=== PATIENT | male | born 1960 | race Caucasian/White ===

== ENCOUNTER → 2019-05-09 16:26 | Outpatient (CLI) | payer OTHER, SELFPAY ==
--- NOTE | 2019-05-09 16:43 | EKG12_ITS ---
Test Reason : PREOP Blood Pressure : / mmHG Vent. Rate : 072 BPM Atrial Rate : 072 BPM P-R Int : 124 ms QRS Dur : 086 ms QT Int : 402 ms P-R-T Axes : 013 064 058 degrees QTc Int : 440 ms Normal sinus rhythm with sinus arrhythmia Normal ECG Confirmed by ANSON JEFFERS ([id number]), telegraph editor SYLVESTER GUPTA ([id number]) on 05/13/2019 2:01:31 PM Referred By: Ameya Delgado Confirmed By:ANSON JEFFERS
[2019-05-09 17:16] LABS: Absolute Lymphocyte Count 0.58 X10^3/uL (0.83-4.51); Absolute Neutrophil Count 5.8 X10^3/uL (2.0-7.7); Basophil# 0.03 X10^3/uL; Basophil% 0.4 % (0-1); Eosinophil# 0.27 X10^3/uL; Eosinophils% 3.5 % (0-5); Hematocrit 46.2 % (40-54); Hemoglobin 15.2 g/dL (13.0-16.5); Lymphocyte # 0.58 X10^3/ul (4.0); Lymphocyte % 7.6 % (19-41); Mean Corp Hgb Conc 32.9 g/dL (32-36); Mean Corpuscular Volume 91.1 fL (80-94); Mean Platelet Vol. 10.7 fl (6.2-12.0); Monocyte# 0.89 X10^3/uL; Monocyte% 11.7 % (0-10); NRBC Flagged by Analyzer 0 % (0-5); Neutrophil # 5.83 X10^3/uL (2.7-7.7); Neutrophil % 76.4 % (47-70); POSITIVE DIFFERENTIAL YES; Platelet Count 180 K/mm3 (150-450); RBC Distribution Width SD 43.2 fl (35.1-43.9); Red Blood Count 5.07 M/mm3 (4.6-6.2); White Blood Count 7.6 K/mm3 (4.4-11.0)
[2019-05-09 17:19] LABS: Differential Indicated SCAN CRITERIA MET
[2019-05-09 17:39] LABS: Differential Comment SCANNED
[2019-05-09 17:54] LABS: Anion Gap 8 (5-15); BUN 17 mg/dL (7-18); BUN/Creat Ratio 17.6 RATIO (10-20); Calcium,Total 8.6 mg/dL (8.5-10.1); Chloride 109 mmol/L (98-107); Creatinine, Serum 0.97 mg/dL (0.70-1.30); EST Glomerular Filtration Rate 84 mL/min (>60); Est Glom Filt Rate - Afr Amer 102 mL/min (>60); Glucose 87 mg/dL (74-106); Potassium 3.7 mmol/L (3.5-5.1); Sodium Level 143 mmol/L (136-145)
== END ==
PROVIDERS: Referring Provider Physician Assistant; Visit Provider Physician Assistant
DX: Z01.818 Encounter for other preprocedural examination (principal); Z79.899 Other long term (current) drug therapy
CPT/HCPCS: 36415; 80048; 85025; 93005

== ENCOUNTER 2019-05-22 05:25 | Day surgery (SDC) | payer OTHER, SELFPAY ==
[2019-05-22] VITALS (7 sets, daily range): BP systolic 104–124; BP diastolic 56–81; PULSE 68–80; RESP 16–18; TEMP 36.1–36.8; O2SAT 93–99; BMI 38.5
[2019-05-22 06:11] LABS: Bedside Glucose 107 mg/dL (70-110)
[2019-05-22] MEDS: Lactated Ringers 1,000 ML 100 ML IV ×2 (06:39→09:30)
[2019-05-22] MEDS: Gabapentin 600 MG Tablet PO (06:40)
[2019-05-22] MEDS: Acetaminophen 500 MG Tablet 1000 MG PO ×2 (06:40→13:08)
[2019-05-22] MEDS: Magnesium Sulfate 4gm/100mL 4 GM/100 ML IV.SOLN. IV (06:40)
--- NOTE | 2019-05-22 07:30 | KNEE_PTH ---
PATIENT: ISAIAH GOODSON [place] [facility] [place][id number] AGE/SX: 58/M ROOM: RE05/22/[address]: Dr. Tye Martinez DO : 1960 BED: DIS: 05/22/2019 SPEC #: [id number] RECD: 05/22/19 14:09 STATUS: LAWRENCE GERONIMO #: [id number] TONEY: 05/22/19 07:[address]: Tye Martinez DEPT: SURGICAL PATHOLOGY RECD BY: Quita De León ENTERED: 05/22/19 14:30 SP TYPE: TOTAL KNEE OTHR DR: Dr. Anthony Pang MD Tissues: Knee, NOS Procedures: Decalcification bone/plaque Surgery Specimen Level IV HEADER OPERATION: ERAS, total knee replacement PRE-OP DIAGNOSIS: Unilateral primary osteoarthritis, left knee TISSUE SUBMITTED: Left knee bone MICROSCOPIC DIAGNOSIS Left knee, total knee replacement/resection: Pieces of bone with degenerative osteoarthritic changes. Fibroadipose tissue, fibroconnective tissue and reactive synovial tissue. NIHARIKA:sunny 05/27/19 MICROSCOPIC DESCRIPTION Slides are reviewed. GROSS DESCRIPTION Received is one container designated left knee bone. The specimen consists of multiple fragments of calderon-yellow bone measuring in aggregate 11 x 10 x 4 cm. Also in the specimen container are multiple fragments of yellow-white soft tissue measuring in aggregate 9 x 8 x 3 cm. A number of bony fragments contain articular surfaces consistent with tibial plateau and femoral condyle and displaying prominent osteophyte formation, eburnation, and bone erosion. Vegetable Harvest Worker sections are submitted in two cassettes as follows: 1 - soft tissue, 2 - bone after decalcification. / NIHARIKA:sunny 05/22/19 TC:5 [facility]: [id number], [id number]
[2019-05-22] MEDS: Cefazolin 2 GM in 0.9% Normal Saline 100 ML IV (07:35)
[2019-05-22 07:53] LABS: M R Staph aureus DNA By PCR Negative (Negative); Probe Check PASS; Specimen Processing Control PASS
--- NOTE | 2019-05-22 08:59 | PCM.OPRPT ---
Report of Operation Date of Procedure: 05/22/19 Pre-Operative Diagnosis: OA left knee Post-Operative Diagnosis: same Surgery/Procedure Performed:: Left TKR Description of Surgical Findings:: Primary Surgeon/Physician: Tye Martinez studio operator: Ameya Delgado PA-C studio operator: Pre-Operative Diagnosis: OA left knee Post-Operative Diagnosis: same Surgery/Procedure Performed: Left TKR Estimated Blood Loss: 50 cc Specimen's Removed: bone Type of Anesthesia: spinal ASA Class: 3 Implants: [Fabrice Triathlon size 7 press fit CR femur, size 7 press fit tibia, 9 mm CS polyethylene spacer, 40 mm press fit patella ] Indications: Patient has severe end-stage osteoarthritis diagnosed via x-rays in the knee. They have failed all forms of conservative measures including activity modification, injections, anti-inflammatories, use of assistive device. The patient has pain that affects on a daily basis and prevents him from doing things that they enjoyed. They have elected to undergo the above procedure. The risks of the procedure were discussed at length and their questions were answered. Procedure Description: The patient was greeted in the preoperative area. The [left ] knee was then marked with a surgical marker. Patient was then taken to or [address]. They were administered a dose of antibiotics as well as tranexamic acid. Once adequate anesthesia was obtained and airway was secured to placed in supine position on the operating room table. A well-padded tourniquet was placed on the affected extremity. Leg was then prepped and draped in the usual sterile fashion from the knee down. Ioban was used on the skin. Surgical timeout was then performed and confirmed with all present. Six-inch Esmarch was used to examine the limb and tourniquet was then inflated to 250 mmHg. A longitudinal incision was then planned and carried out in the anterior aspect of the knee. The dissection was then carried the length of the incision the extensor mechanism was identified. Standard medial parapatellar arthrotomy was then performed revealing severe eburnation of bone and periarticular osteophytes. There is complete loss of cartilage especially in the medial compartment with varus alignment. Anterior fat pad was removed for visualization purposes and the anterior medial aspect of the tibia was skeletonized for exposure to the knee. The knee was then flexed the patella was inverted. Opening reamer was then used in the femur approximately 1 cm anterior to the attachment of the PCL. The intramedullary valgus wand was then placed in the femur set at 5? of valgus. The distal femoral cutting jig was then applied to the femur with anticipated resection of approximately 8 mm. This was then made with a oscillating saw. The sizing guide was then placed referencing off the posterior condyles and also reference off the epicondylar axis. This was measured and the appropriate size 4-in-1 cutting jig was then applied to the distal femur. Anterior posterior cuts were made followed by the anterior and posterior chamfer cuts. These bony pieces and fragments were removed and placed on the back table. Posterior retractor was then utilized and the tibia was subluxed anteriorly. Intramedullary tibial alignment jig was then applied to the tibia referencing off the medial one third of the tibial tubercle the anterior tibial spine the middle aspect of the tibiotalar joint. Also reference off patient's [place]. The tibial cutting jig was then pinned with anticipated resection of 2 mm off of the deficient medial tibial condyle. This cut was made with the oscillating saw. Once this was complete a laminar special agent fbi was utilized in both medial lateral meniscus were removed and a posterior capsular osteophytes were also removed. Posterior capsule release was performed in the posterior capsule as well as the geniculate arteries are treated with the aqua Sonia. The tibia was incised and the appropriate sized tibial tray was then pinned. The femoral trial was then placed and the knee was trialed. Full flexion-extension were easily achieved. The knee seemed to balance quite nicely. Any remaining osteophytes were removed at this time. Once this was complete the patella was everted and the patella reaming device was then utilized the patella was then placed in the appropriate jig and reamer was then used to remove approximately 9 mm of the undersurface of the patella. A soft tissue remaining was in the way was removed and patella trial was then placed listed maintain excellent tracking using the no thumbs technique. The tibial tray at this point was punched to accommodate the fins of the final implant. The permanent implants were then impacted into place. The knee is once again trialed with different size polyethylenes to ensure the full range of motion was achieved as well as excellent balancing ligamentously was achieved. At this point the knee was copiously irrigated. Final implant was then inserted locking mechanism was engaged and confirmed to be locked. The arthrotomy was then closed with #1 Vicryl aggravate type fashion interrupted. Subcutaneous tissue was closed with 0 Vicryl and surgical andrade were placed in the skin. A occlusive silver impregnated dressing was then applied followed by well-padded sterile dressing secured with an Arthur wrap. The patient was taken to the PACU in stable condition. No complications known at this time. Postoperatively we will maintain standard total knee postoperative protocol. The use of the physician diploma medical assistant was integral during this procedure. They assisted with positioning placement of the tourniquet retracting closure and placement of the dressing. The procedure would have been much more difficult without their expertise and assistance studio operator: Ameya Delgado Type of Anesthesia:: Spinal Anesthesiologist: Chad Santoyo Specimen's removed: bone Estimated Blood Loss (mL): 50 cc
--- NOTE | 2019-05-22 11:35 | SUR.PHASEII ---
Addendum entered by Guerda Velázquez 05/22/19 12:16: KITA PT, AND DONG OT, HAVE ARRIVED TO EVALUATE PATIENT. Original Note: ABLE TO BEAR WEIGHT USING WALKER, MARCHED IN PLACED AT BEDSIDE. WILL CALL P.T. FOR EVALUATION.
[2019-05-22] MEDS: oxyCODONE 5 MG Tablet PO (12:15)
== END 2019-05-22 13:27 | disposition home or self-care (01) ==
LOC: SDC 05:27 → AC 05:27
PROVIDERS: Referring Provider Orthopaedic Surgery; Visit Provider Orthopaedic Surgery
PROC: (CPT 27447; principal; 2019-05-22 07:05)
DX: M17.12 Unilateral primary osteoarthritis, left knee (principal)
CPT/HCPCS: 01400; 27447; 82962; 87641; 88305; 88311; 97162; 97166; C1776; J7120

== ENCOUNTER 2020-03-30 14:28 | Observation (INO) | payer OTHER, SELFPAY ==
[2020-02-25 08:27] VITALS: BMI 38.5
[2020-03-24 19:52] LABS: Probe Check PASS; Specimen Processing Control PASS
[2020-03-30] VITALS (14 sets, daily range): BP systolic 114–143; BP diastolic 67–87; PULSE 66–87; RESP 16–18; TEMP 36.1–37; O2SAT 90–96; BMI 40.4
--- NOTE | 2020-03-30 | HERN_PTH ---
PATIENT: ISAIAH GOODSON LOC: [facility] U#:[id number] AGE/SX: 59/M ROOM: WI318 RE03/30/[address]: Dr. Ricky Bonner MD : 1960 BED: 1 DIS: 03/31/2020 SPEC #: [id number] RECD: 03/30/20 13:49 STATUS: LAWRENCE REManish #: [id number] TONEY: 03/30/20 00:[address]: Ricky Bonner DEPT: SURGICAL PATHOLOGY RECD BY: Abimael Leiva ENTERED: 03/31/20 08:02 SP TYPE: Hernia OTHR DR: Dr. Anthony Pang MD Tissues: HERNIA Procedures: Surgery Specimen Level II HEADER OPERATION: Laparoscopic ventral hernia repair mesh PRE-OP DIAGNOSIS: Ventral incisional hernia TISSUE SUBMITTED: Hernia sac MICROSCOPIC DIAGNOSIS Hernia sac, herniorrhaphy: Fibrofatty tissue consistent with hernia sac. AM:sunny 04/01/20 MICROSCOPIC DESCRIPTION Slides are reviewed. GROSS DESCRIPTION Received in fixative is one container labeled with the patient's name and designated hernia sac. The specimen consists of two pieces of yellow adipose tissue measuring 4.5 x 4 x 0.5 cm. No mass lesion is identified. Photographer Finish sections are submitted in one cassette. / SJ:rg 03/31/20 TC:5 CPT: 60281
[2020-03-30] MEDS: Lactated Ringers 1,000 ML 100 ML IV ×2 (10:14→12:15)
--- NOTE | 2020-03-30 10:55 | HP.PCM_ITS ---
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 The patient presents with abdominal wall hernia at the site of incision. The patient reports that it is large and becoming larger. It is painful as well. Past Medical History Medical History: Medical History (Last Updated 02/25/20 @ 08:26 by Sindhu Olivera) hursbrungh disease Allergies No Known Allergies Allergy (Verified 03/30/20 09:58) Home Medications: Ambulatory Orders Medication Instructions Recorded Naproxen Sodium [Aleve] 220 mg PO PRN PRN 05/20/19 Surgical History: Surgical History (Last Reviewed 02/25/20 @ 08:24 by Sindhu Olivera) S/P hernia repair Z98.890, Z87.19 bilateral inguinal S/P right knee surgery Z98.890 Status post left knee replacement Z96.652 Smoking Status: Never smoker Tobacco Use: Non-smoker Review of Systems Constitutional: Denies: Anorexia, Fever HEENT: Denies: Difficulty Swallowing Cardiovascular: Denies: Chest Pain Respiratory: Denies: Cough, Shortness of Breath Gastrointestinal: Reports: Abdominal Pain, - - Ventral hernia. Denies: Nausea, Vomiting Neurological: Denies: Balance problems Psychiatric: Denies: Anxiety, Depression VTE Information - Inpt Only VTE Present on Admission: No VTE Mechan Device Prophylaxis: SCD's Patient Problems: Active and Suspected Problems (Last Updated 02/25/20 @ 08:26 by Sindhu Olivera) Ventral incisional hernia (Acute) - Physical Exam Vitals/I&O's: Vital Signs Temp Pulse Resp BP Pulse Ox 97.4 F L 73 16 136/82 H 96 03/30/20 10:02 03/30/20 10:02 03/30/20 10:02 03/30/20 10:02 03/30/20 10:02 Oxygen Delivery Method Room Air Weight: 298 lb 1.039 oz Body Mass Index (BMI) 40.4 General: Alert, Oriented x3 Neck: No JVD Lungs: Clear to auscultation, Normal air movement Cardiovascular: Regular rate, Regular Rhythm Abdomen: Soft, Non Tender, Non-Distended, - - Reducible ventral hernia Musculoskeletal: No Muscle Wasting Neurological: Cranial nerves II-XII grossly intact Psych/Mental Status: Normal Affect Current Medications Cefazolin Sodium 2 gm/ Sodium (Chloride) 110 mls @ 150 mls/hr IV PREOP ONE Stop: 03/30/20 11:43 Lactated Ringer's () 1,000 mls @ 100 mls/hr IV .Q10H JARVIS Last Admin: 03/30/20 10:14 Dose: 100 mls/hr Documented by: Assessment/Plan All Active Problems (Last Updated 02/25/20 @ 08:26 by Sindhu Olivera) Ventral incisional hernia (Acute) 59-year-old male with incisional ventral hernia 1. The patient has a ventral hernia at the site of his prior incision. The patient had a CT scan done at an outside hospital and I did review the CT scan. The hernia appears to be amenable to laparoscopic repair if the patient does not have too many adhesions. I explained a hybrid laparoscopic and open approach to the patient. I will start laparoscopically and clear any adhesions and then opened the hernia sac and place a port through the hernia to introduce the mesh into the abdomen and close the fascia directly. I will then laparoscopically place mesh in the anterior abdominal wall. I explained the procedure in detail and that the backup plan would be an open hernia repair with mesh. I explained the risks of the procedure including but not limited to bleeding, infection, injury to underlying bowel, recurrence of hernia, hematoma, seroma. The patient understands the risks and is willing to proceed with surgery. We discussed the current risks associated with COVID-19. While it is understood that there is a community spread of COVID-19, the risk of eliseo COVID-19 while at [facility] ([facility]) is very low; however, the risk cannot be completely mitigated because of the community spread of the disease. We discussed in detail the risk of exposure to and/or potential harm posed by the COVID-19 virus with having a surgery/procedure at this time versus the risk of delaying the surgery/procedure. It is not possible to know either the risk of delaying the surgery or procedure or chance of getting an infection with perfect accuracy, but a joint decision was made to proceed at this time with the scheduled surgery/procedure as indicated on the consent form. Patient was notified that we will need to comply with any screening or testing [facility] wishes to perform or that surgery may be delayed for any positive results. Ricky Bonner MD Pager: [facility] [address] [place] [address] [address] [place] [address] Office:
[2020-03-30] MEDS: Cefazolin 2 GM in 0.9% Normal Saline 100 ML IV (11:02)
[2020-03-30] MEDS: Bupiv/Epi 0.25% 30 ML Vial (12:30)
[2020-03-30] MEDS: 0.9% Normal Saline 1,000 ML 60 ML IV (14:47)
[2020-03-30] MEDS: Ketorolac 15 MG/ML Vial IV (15:33)
--- NOTE | 2020-03-30 15:40 | PCM.OPRPT ---
Problem List (1) Ventral incisional hernia Status: Acute Report of Operation Date of Procedure: 03/30/20 Pre-Operative Diagnosis: Incisional ventral hernia Post-Operative Diagnosis: Same Surgery/Procedure Performed:: Laparoscopic incisional ventral hernia repair with mesh Specimen's removed: Hernia sac Description of Procedure: The patient was brought back the operating room and general anesthesia was induced. The abdomen was prepped and draped in usual sterile fashion. An incision was made in the left upper quadrant and a 5 mm port was placed into the abdomen using Visiport technique. The abdomen is insufflated to 15 mmHg. The patient had dense adhesions throughout the abdomen to the anterior abdominal wall. Under direct visualization an epigastric 5 mm port was placed as well as a left lower quadrant 5 mm port. The adhesions were dense to the abdominal wall and they were taken down sharply using scissors. The hernia was reduced and there was also a smaller hernia superior to this. The adhesions were all taken down and the bowel was inspected and there is no sign of bowel injury. Next an incision was made over the hernia and the hernia sac was excised. 0 Prolene sutures in a [id number] fashion were placed in the anterior fascia and the middle suture was left open. A 10 mm port was placed into this opening and the abdomen was reinsufflated. 15 cm round ventral light ST mesh with echo positioning system was placed through the 10 mm port into the abdomen under direct visualization. The port was removed and the remaining suture was tied tight. The abdomen was reinsufflated and under direct visualization the balloon was insufflated and it was tightened to the abdominal wall. The pressure in the abdomen was dropped 8 mmHg. Using secure strap tacker the mesh was tacked to the abdominal wall in 4 quadrants and then the balloon was removed from the mesh and removed through a 5 mm port and it was inspected and it was intact. Next the bowel was inspected once more and there did not appear to be any injury to the bowel. There was no leakage or injury or bleeding on the bowel. Next the mesh was tacked to the anterior abdominal wall circumferentially and a few tacks were placed into the middle. The bowel was reinspected and still appeared intact with no sign of bowel injury. Next the air was allowed to desufflate from the abdomen as the mesh was inspected and appeared to lie flat. The incisions were each injected with local anesthetic. The skin incisions were closed with interrupted 4-0 Monocryl sutures as well as Steri-Strips and bandages. Patient was taken to PACU in stable condition. Patient will be admitted for observation due to the numerous adhesions. Grafts/Implants Used: [address] mesh - Admit VTE Documentation VTE Mechan Device Prophylaxis: SCD's
[2020-03-30] MEDS: Acetaminophen 325 MG Tablet 650 MG PO (18:48)
[2020-03-30] MEDS: Ondansetron 4 MG/2 ML Vial IV (19:24)
[2020-03-30] MEDS: Pantoprazole Sodium 20 MG Tablet PO (22:06)
[2020-03-30] MEDS: Docusate Sodium 100 MG Capsule PO (22:06)
[2020-03-31 02:36] VITALS: BP 127/80; PULSE 85; RESP 18; TEMP 36.6; O2SAT 92
[2020-03-31] MEDS: Ondansetron 4 MG/2 ML Vial IV (04:52)
[2020-03-31 05:44] LABS: Absolute Lymphocyte Count 0.71 X10^3/uL (0.83-4.51); Absolute Neutrophil Count 14.3 X10^3/uL (2.0-7.7); Basophil# 0.02 X10^3/uL; Basophil% 0.1 % (0-1); Eosinophil# 0.03 X10^3/uL; Eosinophils% 0.2 % (0-5); Hematocrit 43.9 % (40-54); Hemoglobin 14.8 g/dL (13.0-16.5); Lymphocyte # 0.71 X10^3/ul (4.0); Lymphocyte % 4.3 % (19-41); Mean Corp Hgb Conc 33.7 g/dL (32-36); Mean Corpuscular Hgb 30.3 pg (27.0-32.0); Mean Platelet Vol. 10.5 fl (6.2-12.0); Monocyte# 1.29 X10^3/uL; Monocyte% 7.8 % (0-10); NRBC Flagged by Analyzer 0 % (0-5); Neutrophil # 14.31 X10^3/uL (2.7-7.7); Neutrophil % 87.1 % (47-70); Platelet Count 219 K/mm3 (150-450); RBC Distribution Width CV 13.2 % (11.6-14.6); RBC Distribution Width SD 43.2 fl (35.1-43.9); Red Blood Count 4.88 M/mm3 (4.6-6.2); White Blood Count 16.4 K/mm3 (4.4-11.0)
[2020-03-31 06:00] LABS: Anion Gap 6 (5-15); BUN 16 mg/dL (7-18); BUN/Creat Ratio 15.4 RATIO (10-20); Calcium,Total 8.5 mg/dL (8.5-10.1); Chloride 109 mmol/L (98-107); Creatinine, Serum 1.04 mg/dL (0.70-1.30); EST Glomerular Filtration Rate 77 mL/min (>60); Est Glom Filt Rate - Afr Amer 94 mL/min (>60); Estimated Creatinine Clearance 82.91 ml/min; Glucose 144 mg/dL (74-106); Potassium 3.9 mmol/L (3.5-5.1); Sodium Level 139 mmol/L (136-145)
[2020-03-31] MEDS: 0.9% Normal Saline 1,000 ML 60 ML IV (06:31)
--- NOTE | 2020-03-31 07:43 | PN.SURG_ITS ---
Patient Problems: Active and Suspected Problems (Last Updated 02/25/20 @ 08:26 by Sindhu Olivera) Ventral incisional hernia (Acute) Subjective: Patient reports that he is doing well this morning. He is passing a small amount of gas but he did have a small amount of vomiting this morning as well. His abdomen is improved since yesterday. - Physical Exam Vitals/I&O's: Vital Signs Temp Pulse Resp BP Pulse Ox 97.8 F 85 18 127/80 H 92 03/31/20 02:36 03/31/20 02:36 03/31/20 02:36 03/31/20 02:36 03/31/20 02:36 Oxygen Flow Rate (L/min) 3 Oxygen Delivery Method Room Air Weight: 298 lb 1.039 oz Body Mass Index (BMI) 40.4 Intake and Output for Last 24 Hours 03/29/20 03/30/20 03/31/20 23:59 23:59 23:59 Intake Total 2510 / 2510 1644 / 1644 Output Total 1350 / 1350 Balance 2510 / 2510 294 / 294 General: Alert, Oriented x3 Lungs: Normal air movement Cardiovascular: Regular rate, Regular Rhythm Abdomen: Soft, Non-Distended, Tender - Mild tenderness Laboratory Results 03/31/20 05:28: WBC 16.4 H, RBC 4.88, Hgb 14.8, Hct 43.9, MCV 90.0, MCH 30.3, MCHC 33.7, RDW Std Deviation 43.2, RDW Coeff of Bina 13.2, Plt Count 219, MPV 10.5, Immature Gran % (Auto) 0.500, Neut % (Auto) 87.1 H, Lymph % (Auto) 4.3 L, Randolph % (Auto) 7.8, Eos % (Auto) 0.2, Baso % (Auto) 0.1, Absolute Neuts (auto) 14.3 H, Absolute Lymphs (auto) 0.71 L, Nucleated RBC % 0 03/31/20 05:28: Sodium 139, Potassium 3.9, Chloride 109 H, Carbon Dioxide 24.0, Anion Gap 6, BUN 16, Creatinine 1.04, Estim Creat Clear Calc 82.91, Est GFR (MDRD) Af Amer 94, Est GFR (MDRD) Non-Af 77, BUN/Creatinine Ratio 15.4, Glucose 144 H, Calcium 8.5 Current Medications Acetaminophen (Tylenol) 650 mg PO Q4H PRN PRN PRN Reason: Pain or Fever Last Admin: 03/30/20 18:48 Dose: 650 mg Documented by: Docusate Sodium (Colace) 100 mg PO BID [facility] Last Admin: 03/30/20 22:06 Dose: 100 mg Documented by: Enoxaparin Sodium (Lovenox) 40 mg SC DAILY [facility] Sodium Chloride () 1,000 mls @ 60 mls/hr IV .[id number] [facility] Last Admin: 03/31/20 06:31 Dose: 60 mls/hr Documented by: Sodium Chloride () 250 mls @ 15 mls/hr IV .[id number] PRN PRN Reason: Saline Flush Sodium Chloride () 250 mls @ 15 mls/hr IV .[id number] PRN PRN Reason: Additional IVPB Infusion Ketorolac Tromethamine (Toradol (Bkc)) 15 mg IV Q8H PRN PRN PRN Reason: Pain Score 4-10/10 Stop: 04/01/20 14:29 Last Admin: 03/30/20 15:33 Dose: 15 mg Documented by: Morphine Sulfate () 2 - 4 mg IV Q2H PRN PRN PRN Reason: Pain Score 4-10/10 Morphine Sulfate () 2 - 4 mg IV Q2H PRN PRN PRN Reason: Pain Score 4-10/10 Ondansetron HCl (Zofran) 4 mg IV Q6H PRN PRN PRN Reason: NAUSEA Last Admin: 03/31/20 04:52 Dose: 4 mg Documented by: Oxycodone HCl (Oxyir) 5 - 10 mg PO Q4H PRN PRN PRN Reason: Pain Score 4-10/10 Pantoprazole Sodium (Protonix) 20 mg PO BID [facility] Last Admin: 03/30/20 22:06 Dose: 20 mg Documented by: Sodium Chloride () 10 - 40 ml IV UD PRN PRN Reason: SALINE FLUSH Medical Necessity - Tobacco Use Smoking Status: Never smoker Tobacco Use: Non-smoker Assessment/Plan All Active Problems (Last Updated 02/25/20 @ 08:26 by Sindhu Olivera) Ventral incisional hernia (Acute) 59-year-old male status post ventral hernia repair with extensive takedown of adhesions 1. Patient reports he did well overnight and had a small amount of vomiting this morning. He denies any nausea currently. I will try clear liquids for breakfast and make sure he tolerates that before regular diet at lunch. If he tolerates regular diet for lunch he may be discharged home. Ricky Bonner MD Pager: [facility] [address] [place] [address], [address] [place] [address] Office:
--- NOTE | 2020-03-31 07:51 | PCM.DC.HER ---
Discharge Diet: Light diet - advance as tolerated Discharge Activity: Return to Normal Activity, May Not Drive - for 2-3 days or while taking narcotic pain meds., May Shower - with the bandage in place 1-2 days after surgery. Lifting Restrictions: 20 pounds for 6 weeks. Additional Activity Instructions:: Climbing stairs is fine, walking is encouraged. Sitting in bed may be uncomfortable. Sitting up using your lateral muscles (sitting up sideways) is usually more comfortable. Do not drive, work heavy equipment of sign legal documents for 24 hours. Pain medications may cause nausea, you should typically eat light foods as you take your pain medications. Pain medications may also cause constipation. If you have difficulty with this, discuss with your doctor. Call your doctor if your incision/area has: Continuous Slow Oozing, Sudden Increased Bleeding, Increased Pain/ Swelling, Increased Redness, Foul Smelling Discharge Call your doctor if you observe: Fever of 101 or Higher Suture Line Care: Avoid Pulling/Pushing, Avoid Pinching/Bending Change Dressing in (Days):: 3 - Leave steri-strips for 1 week. May protect with a guaze bandaid. Cleanse incision/area with: Keep Dressing Clean & Dry Allergies/Adverse Reactions: Allergies No Known Allergies Allergy (Verified 03/30/20 09:58) Medications to take at Discharge Naproxen Sodium [Aleve] 220 mg PO PRN PRN 05/20/19 Oxycodone [Oxyir] 5 - 10 mg PO Q4H PRN PRN 5 Days #20 tablet 03/31/20 The following prescriptions were given: Oxycodone [Oxyir] 5 - 10 mg PO Q4H PRN PRN 5 Days #20 tablet PRN Reason: Pain Score 4-10/10 Transmission Status: Sent to [facility] Test Results: Test results from this visit will be discussed in further detail at your follow-up appointment, if applicable. Please Follow Up With: Ricky Bonner MD When: Please call to schedule 2 week follow up appointment. [phone]
[2020-03-31] MEDS: Enoxaparin 40 MG/0.4 ML Syringe SC (08:28)
[2020-03-31] MEDS: Docusate Sodium 100 MG Capsule PO (08:28)
[2020-03-31] MEDS: Pantoprazole Sodium 20 MG Tablet PO (08:28)
[2020-03-31 08:30] VITALS: BP 118/75; PULSE 84; RESP 18; TEMP 36.9; O2SAT 93
--- NOTE | 2020-03-31 12:38 | NURSING ---
in to see if patient tolerated regular diet without nausea/pain. pt no longer present in room. INCIDENT RESPONSE CONSULTANT stated pt called out stating he tolerated diet without complaint was ready go. left with discharge instructions this RN had left at bedside to review with patient.
== END 2020-03-31 12:14 | disposition home or self-care (01) ==
LOC: SDC 15:05 → MS3 15:05
PROVIDERS: Anesthesiology; Admitting Provider Surgery; Referring Provider Surgery; Visit Provider Surgery
PROC: 0WQF4ZZ Repair Abdominal Wall, Percutaneous Endoscopic Approach (ICD-10-PCS; CPT 49654; principal; 2020-03-30 10:40)
DX: K43.2 Incisional hernia without obstruction or gangrene (principal); Z11.59 Encounter for screening for other viral diseases; Q43.1 Hirschsprung's disease; K58.9 Irritable bowel syndrome, unspecified
CPT/HCPCS: 00832; 49654; 80048; 85025; 87635; 88302; 96372; 96374; 96375; 96376; 99218; 99251; J7030; J7120; G0378; G0379; G0463; J2405; U0003

== ENCOUNTER 2022-01-31 05:51 | Day surgery (SDC) | payer OTHER, SELFPAY ==
--- NOTE | 2022-01-14 08:59 | EKG12_ITS ---
Test Reason : PRE OP Blood Pressure : / mmHG Vent. Rate : 074 BPM Atrial Rate : 074 BPM P-R Int : 154 ms QRS Dur : 072 ms QT Int : 414 ms P-R-T Axes : 053 071 070 degrees QTc Int : 459 ms Normal sinus rhythm Normal ECG Confirmed by TIERRA MARIN, TESSA ([id number]), editor managing newspaper TON WEISS ([id number]) on 01/17/2022 9:59:18 AM Referred By: Tye Martinez Confirmed By:DANIEL MAYORGA MD
[2022-01-14 09:53] LABS: Hematocrit 48.1 % (40-54); Hemoglobin 15.8 g/dL (13.0-16.5); Mean Corp Hgb Conc 32.8 g/dL (32-36); Mean Corpuscular Hgb 30.3 pg (27.0-32.0); Mean Corpuscular Volume 92.1 fL (80-94); Mean Platelet Vol. 10.2 fl (6.2-12.0); Platelet Count 214 K/mm3 (150-450); RBC Distribution Width CV 13.5 % (11.6-14.6); RBC Distribution Width SD 45.7 fl (35.1-43.9); Red Blood Count 5.22 M/mm3 (4.6-6.2); White Blood Count 7.4 K/mm3 (4.4-11.0)
[2022-01-14 10:08] LABS: Magnesium 2.3 mg/dL (1.6-2.6)
[2022-01-14 10:16] LABS: Anion Gap 5 (5-15); BUN 21 mg/dL (7-18); BUN/Creat Ratio 20.8 RATIO (10-20); Calcium,Total 8.9 mg/dL (8.5-10.1); Chloride 111 mmol/L (98-107); Creatinine, Serum 1.01 mg/dL (0.70-1.30); EST Glomerular Filtration Rate 80 mL/min (>60); Est Glom Filt Rate - Afr Amer 96 mL/min (>60); Glucose 116 mg/dL (74-106); Hemoglobin A1c 5.8 % (3.8-5.6); Potassium 3.9 mmol/L (3.5-5.1); Sodium Level 141 mmol/L (136-145)
[2022-01-31] VITALS (7 sets, daily range): BP systolic 93–139; BP diastolic 57–81; PULSE 75–83; RESP 16–200; TEMP 36.2–36.8; O2SAT 93–966; BMI 43.3
--- NOTE | 2022-01-31 | KNEE_PTH ---
PATIENT: ISAIAH GOODSON LOC: [facility] [place] U#:[id number] AGE/SX: 61/M ROOM: RE01/31/[address]: Dr. Tye Martinez DO : 1960 BED: DIS: 01/31/2022 SPEC #: [id number] RECD: 01/31/22 10:02 STATUS: LAWRENCE GERONIMO #: [id number] TONEY: 01/31/22 00:[address]: Tye Martinez DEPT: SURGICAL PATHOLOGY RECD BY: Abimael Leiva ENTERED: 01/31/22 11:42 SP TYPE: TOTAL KNEE OTHR DR: MD Dr. Anthony Rodriguez MD Tissues: Knee, NOS Procedures: Decalcification bone/plaque Surgery Specimen Level IV HEADER OPERATION: ERAS, total knee replacement robotic arm assist PRE-OP DIAGNOSIS: Primary osteoarthritis right knee TISSUE SUBMITTED: Bone and soft tissue right knee MICROSCOPIC DIAGNOSIS Bone and soft tissue, right knee, total knee replacement/resection: Pieces of bone with degenerative osteoarthritic changes. Fibroadipose tissue, fibroconnective tissue and reactive synovial tissue. NIHARIKA:sunny 02/03/2022 MICROSCOPIC DESCRIPTION Slides are reviewed. GROSS DESCRIPTION Received is one container designated bone and soft tissue right knee. The specimen consists of multiple fragments of calderon-yellow bone measuring in aggregate 10 x 10 x 4 cm. Also in the specimen container are multiple fragments of yellow-white soft tissue measuring in aggregate 10 x 8 x 3 cm. A number of bony fragments contain articular surfaces consistent with tibial plateau and femoral condyle and displaying prominent osteophyte formation, eburnation, and bone erosion. Associate Merchandise Planner sections are submitted in two cassettes as follows: 1 - soft tissue, 2 - bone after decalcification. / NIHARIKA:sunny 01/31/2022 :5 [facility]: [id number], [id number]
[2022-01-31] MEDS: Acetaminophen 500 MG Tablet 1000 MG PO (06:49)
[2022-01-31] MEDS: Gabapentin 600 MG Tablet PO (06:49)
[2022-01-31 06:51] LABS: Bedside Glucose 135 mg/dL (74-106)
[2022-01-31] MEDS: Lactated Ringers 1,000 ML 15 ML IV (06:53)
--- NOTE | 2022-01-31 08:04 | RAD_ITS ---
STUDY: X-RAY - RIGHT KNEE REASON FOR EXAM: Male, 61 years old. New Total Hip Arthroplasty . TECHNIQUE: 2 view(s) of the knee. COMPARISON: None. FINDINGS: There is a 3 component total knee arthroplasty in anatomic position. There are expected post-operative findings. There are no complications. No other significant abnormality is identified. RAD/Knee 1 or 2 Views IMPRESSION: Total knee arthroplasty in anatomic alignment without complications. Electronically Signed: Ameya Arevalo MD at 11:48 EDT ,
[2022-01-31] MEDS: TXA 1000mg in NS100 100ml (IVPB at Incision) 660 MG IV (08:30)
[2022-01-31] MEDS: TXA 1000mg in NS100 100ml (IVPB at Closure) 660 MG IV (09:47)
--- NOTE | 2022-01-31 09:59 | OP.PCM_ITS ---
Report of Operation Date of Procedure: 01/31/22 Pre-Operative Diagnosis: OA right knee Post-Operative Diagnosis: same Surgery/Procedure Performed:: Right TKR Description of Surgical Findings:: Report of Operation Date of Procedure: Preoperative Diagnosis: [right ] knee primary osteoarthritis Postoperative Diagnosis: [right ] knee primary osteoarthritis Operation: Robotic Assisted Knee Total Arthroplasty, [ right ] knee Surgeon: Dr Tye Martinez DO Anatomy Professor: Ameya Delgado PA-C Anesthesia: spinal Anesthesiologist: Antolin Villarreal M.D. Findings: Stable knee with good patella tracking Specimen(s): Bony cuts Complications: No intraoperative complications Estimated Blood Loss: 20 cc IV Fluids: 1000 cc crystalloid Implants Used: 1. [place] [employer] press-fit CR size 6 femur 2. [place] [employer] size 6 tibia 3. 38 mm patella 4. 9 mm CS polyethylene Brief History Operative Indications: [ (61 y/o male) ] with history of [right ] knee osteoarthrosis with radiographic findings with loss of joint space, osteophyte formation and subchondral sclerosis. Failed conservative measures as mentioned in the H&P. Discussion of total knee arthroplasty as well as risk and benefits were discussed with the patient including but not limited to blood loss, DVTs, PEs, neurovascular damage, general risk of anesthesia including loss of life, and stiffness or instability were also discussed with the patient. Patient demonstrated understanding and was able to sign informed consent. Procedure: On the date of procedure, patient's [ right ] lower extremity was marked in the preoperative area. The patient was then taken back to the operating room where that patient was placed on the table in the supine position. All bony prominences were identified and well-padded. Anesthesia assumed control of the C-spine and airway throughout the remainder of the procedure. A tourniquet was placed on the [right ] upper thigh and the leg was prepped in a sterile fashion. The surgeon then scrubbed at this time. Upon reentering the room, the [right ] lower extremity was draped in a standard orthopedic fashion. A timeout was then called and everyone agreed upon the side, the site, the procedure to be performed, patient's identity and antibiotics given. Esmarch bandage was used to exsanguinate the extremity and the tourniquet was placed up to 250 mmHg with the knee in flexion. A midline skin incision was made and a sharp dissection was taken down through skin, subcutaneous tissue and fat. The standard medial parapatellar incision was made and the patella was subluxed laterally. An appropriate deep MCL release was done and the fat pad was resected. Our attention was then directed to the patella. The patella was everted and a flat resection was made. The knee was then flexed up and 2 femoral pins were placed inside the incision and 2 tibial pins were placed outside the incision in the medial tibia bicortically. Once this was completed, the 2 checkpoints in the femur and tibia were placed. Knee was then flexed up and the bony landmarks were registered. Once the was completed, the knee taken through range of motion and manually stressed allowing us to plan for an appropriate tibial cut. The robotic arm was brought into the field sterilely and checkpoint and saw were registered. Based on the patient's deformity, the tibial cut was made in [2 degrees varus ]. At this time, the tensioner was then placed in the joint and ligament tension was checked at 90 degrees and full extension. Based on the patient's ligamentous tension, appropriate adjustments were made to the operative plan and ligament releases were done. Once we were happy with our operative plan with balanced flexion and extension gaps, our attention was directed to the femur. The robot was brought into the field sterilely and registered. Posterior condylar cuts, anterior chamfer cuts and anterior cuts were appropriately made for a [size 6 ] femur. When these were completed, the saws were switched out in the distal femoral and posterior chamfer cuts were made. Protecting the soft tissue throughout this time. A [ size 6 ] base plate was selected. The knee was flexed to 90 degrees and soft tissues and posterior osteophytes were removed from the joint. 40 cc of the periarticular injection was injected into the posterior medial corner of the joint. The appropriate trials were then placed on the femur and tibia. A trial polyethylene was trialed to ensure proper balancing and stability of the knee. The appropriate tibial internal rotation was then marked with a bovie. Our attention was then directed to the patella. The lug holes were drilled and the patella trial was placed. Patellar tracking was checked and deemed appropriate. Once we were happy, lug holes were drilled for the femur and trial components were removed. The tibia was subluxed and pinned into place and the keel was punched and drilled appropriately. Final components were verified and opened. The wound was copiously irrigated with normal saline. The components were impacted into place with the tibia, femur and finally the patella. The trial poly component was placed and the knee was placed in full extension. The tracking, alignment and balance were verified and a [9 mm CS ] polyethylene component was placed. Once the final components were placed an Irrisept lavage was performed and the wound was copiously irrigated with normal saline solution and the periarticular injection was given. the wound was closed in a layer-armstrong fashion using #1 vicryl interrupted sutures for the arthrotomy, 2-0 interrupted vicryl suture for the subcuticular layer and andrade for final skin closure. A sterile compressive dressing was then placed. The patient was then awakened from anesthesia, transferred to the [facility] [place] and transferred to the PACU for recovery. My physician supply chain assistant was a vital part of this case. He was important in appropriate retraction during the case, and protection of soft tissues during bony cuts. His intimate knowledge of the case and my steps aided in safe and expedient completion of the procedure as well as appropriate position of the leg during the case. He was also vital in assisting with closure under my direct supervision. Due to the complexity of this case, robotic arm was used to assist in the surgery to improve accuracy and clinical outcomes. Post-op Plan: DVT ppx; ASA 81 mg BID, thigh high compression stockings Follow up: in office in 2 weeks for wound check PT: to start POD #0 at hospital, outpatient PT should be arranged. Preoperative antibiotic: Ancef 3 grams IV Tye Martinez DO Surgeon: Tye Martinez rail walker: Ameya Delgado Type of Anesthesia: Spinal Anesthesiologist: Antolin Villarreal Estimated Blood Loss (mL): 20 cc Fluids Replaced: 1000 cc crystalloid Admit VTE Documentation VTE Present on Admission: No VTE Mechan Device Prophylaxis: SCD's and Thigh High PRATIMA Hose VTE Pharm Prophylaxis ordered?: Yes
[2022-01-31] MEDS: Lactated Ringers 1,000 ML 999 ML IV (10:20)
== END 2022-01-31 13:17 | disposition home or self-care (01) ==
LOC: SDC 05:51 → AC 05:52
PROVIDERS: Anesthesiology; Referring Provider Orthopaedic Surgery; Visit Provider Orthopaedic Surgery
PROC: 0SRC0JZ Replacement of Right Knee Joint with Synthetic Substitute, Open Approach (ICD-10-PCS; CPT 27447; principal; 2022-01-31 07:30)
DX: M17.11 Unilateral primary osteoarthritis, right knee (principal); G47.30 Sleep apnea, unspecified; E66.9 Obesity, unspecified; Z68.39 Body mass index [BMI] 39.0-39.9, adult; Z96.652 Presence of left artificial knee joint
CPT/HCPCS: 27447; 01402; 64445; 36415; 73560; 80048; 82962; 83036; 83735; 85027; 87081; 88305; 88311; 93005; 97162; C1776; J7120; J2405; J3475

== ENCOUNTER 2022-06-18 07:02 | Emergency (ER) | payer OTHER, SELFPAY ==
[2022-06-18 07:03] VITALS: BP 165/93; PULSE 82; RESP 25; TEMP 36.5; O2SAT 96; BMI 39.7
[2022-06-18 07:06] VITALS: BP 165/93; PULSE 88; RESP 24; TEMP 36.5; O2SAT 94; O2SAT 95
--- NOTE | 2022-06-18 07:25 | EKG12_ITS ---
Test Reason : SOB Blood Pressure : / mmHG Vent. Rate : 093 BPM Atrial Rate : 093 BPM P-R Int : 146 ms QRS Dur : 076 ms QT Int : 380 ms P-R-T Axes : 067 085 069 degrees QTc Int : 472 ms Normal sinus rhythm Nonspecific ST abnormality Abnormal ECG Confirmed by LUIZA MARIN, NAVNEET ([id number]), editor book TON WEISS ([id number]) on 06/21/2022 9:43:37 AM Referred By: QUITA Confirmed By:NAVNEET JARRETT MD
--- NOTE | 2022-06-18 07:26 | EDS_ITS ---
HPI History of Present Illness Chief Complaint: Shortness of Breath Narrative Narrative: 61-year-old male presenting with shortness of breath for about 2 weeks. Patient was diagnosed with acute bronchitis. He states he gets this annually. Patient states his chest has felt tight for the last 2 weeks but he feels like it is more of a bronchitis sensation is had in the past. He does not chest pressure. No sharp pleuritic pain or pain with deep inspiration. Patient is able to sleep flat at night. He does state that he coughs a lot more when he sleeps. No lower extremity swelling. No history of CHF. Patient did a course of azithromycin after getting a negative chest x-ray by his primary care physician. This did not help. He is currently on prednisone 40 mg p.o. daily and is on day 3 of doxycycline he states he still feeling short of breath. He has wheezing as well. He has an albuterol inhaler but no nebulizers. He denies a history of COPD, asthma. He has not had fever, chills, body aches. He does express he is a little bit nausea. He thinks this is from swallowing his sputum and saliva. No hemoptysis. No hematemesis or coffee-ground emesis. Patient does express that he is having some diarrhea which has been ongoing even before this month. He does not have abdominal pain. Patient does state he was tested for COVID last week and this was negative. No sick contacts. [facility] Medical History History of echocardiogram History of stress test Loose, teeth Sleep apnea Home Medications albuterol sulfate 90 mcg/actuation aerosol inhaler 1 - 2 puff inhalation Q6H PRN Shortness Of Breath 06/18/22 [History Last Taken Unknown] budesonide-formoterol HFA 160 mcg-4.5 mcg/actuation aerosol inhaler (Symbicort) 2 puff inhalation BID #10.2 grams 06/18/22 [Rx Last Taken Unknown] dicyclomine 20 mg tablet 10 - 20 mg PO TID 06/18/22 [History Last Taken Unknown] doxycycline hyclate 100 mg tablet 100 mg PO BID 06/18/22 [History Last Taken Unknown] prednisone 20 mg tablet 40 mg PO DAILY 06/18/22 [History Last Taken Unknown] Allergy/AdvReac Type Severity Reaction Status Date / Time No Known Allergies Allergy Verified 06/18/22 07:02 Family History Mother Diabetes CAD (coronary artery disease) Surgical History History of bilateral knee replacement S/P hernia repair S/P right knee surgery Status post left knee replacement Social History Smoking Status: Never smoker alcohol intake: never ROS ROS ED Constitutional Constitutional ED: Denies chills or fever(s) Eyes Eyes: Denies change in vision ENT ENT ED: Reports rhinorrhea and sore throat Cardiovascular Cardiovascular: Denies palpitations Respiratory/Chest Respiratory/Chest: Reports cough, dyspnea and dyspnea on exertion Gastrointestinal Gastrointestinal: Reports diarrhea, nausea and vomiting; Denies abdominal pain Genitourinary Genitourinary ED: Denies dysuria or hematuria Musculoskeletal Musculoskeletal: Denies arthralgias or myalgias Integumentary Denies abscess or Abrasions Neurologic Neurologic: Denies headache(s) or paresthesias Psychiatric Psychiatric: Denies anxiety or depression EXAM Physical Exam Const Vital Signs: 06/18/22 07:03 06/18/22 07:06 06/18/22 07:06 Temperature 97.7 F L 97.7 F L Temperature Source Temporal Temporal Pulse Rate 82 88 Respiratory Rate 25 H 24 H Respiratory Effort Short of Breath Labored Accessory Muscle Use Respiratory Depth Deep Respiratory Pattern Tachypnea Blood Pressure 165/93 H 165/93 H Blood Pressure Mean 117 117 Pulse Ox 96 94 Oxygen Delivery Method Room Air Room Air Room Air 06/18/22 07:55 06/18/22 09:11 Temperature Temperature Source Pulse Rate 92 86 Respiratory Rate 21 H 20 H Respiratory Effort Respiratory Depth Respiratory Pattern Tachypnea Blood Pressure 136/111 H Blood Pressure Mean 119 Pulse Ox 93 Oxygen Delivery Method Room Air Positive well nourished General Appearance ED: NAD; Negative for pallor HEENT Reports moist mucous membranes atraumatic Eyes PERRL and EOMs intact bilaterally General Eye ED: Negative for pale conjunctiva or scleral icterus Neck no lymphadenopathy and supple Resp Resp Narrative: Slightly tachypneic. No accessory muscle use. Patient speaks in full sentences. Auscultation: wheezes expiratory wheezes and throughout Cardio regular rate and regular rhythm Extremity normal to inspection General Extremety ED: Yes edema General Extremity: edema Neuro oriented x3 and CN's II-XII intact bilaterally Sensorium / Orientation: alert Motor Exam: strength 5/5 throughout Psych mental status grossly normal Skin General Skin Exam: Negative for jaundice or pallor MDM MDM MDM Narrative Medical decision making narrative: Patient presenting with dyspnea and diagnosis of acute bronchitis. I reviewed the medical record and found that he did have a chest x-ray 06/08/2022 which was negative for any acute process. Patient has been treated with a Z-Jesse and then followed this with doxycycline. He is on prednisone 40 mg p.o. daily and is on day 2-3 of this. On exam he still wheezing fairly significantly although he is not in any respiratory distress. He did express to me that his chest felt tight over the last few weeks. An EKG was obtained and on my interpretation this is a normal sinus rhythm with a ventricular rate of 93 bpm without sign of ischemic change or dysrhythmia. Patient treated with aerosols and Solu-Medrol 125 mg. I will obtain a chest x-ray two-view and basic lab work to include a high- sensitivity troponin. Patient is not complaining of any sharp pleuritic pain or chest pressure. He describes it as the sensation he gets when he gets bronchitis. He is wheezing on exam so I believe PE is less likely. His Wells criteria for PE is 0. He does not have any lower extremity edema and no unilateral swelling specifically. No history of DVT/PE. No recent surgery. Wells score for DVT would be -2. After patient was given breathing treatments he was reevaluated at 8:02 AM and he says he is feeling improved. His wheezing has improved as well. Awaiting lab work and imaging. You the medical record shows that he had a stress test performed January 2021 which was normal. This was at [facility]. CBC shows a normal white blood cell count 8.5, hemoglobin 14.9, hematocrit 45.4, platelets 245. Renal function electrolytes are normal. Glucose slightly elevated at 139 without anion gap. High- sensitivity troponin is 7 and given his ongoing tightness for 2 weeks I have a low suspicion for ACS. Chest x-ray on my interpretation shows no acute cardiopulmonary process. I do see multiple granulomas which patient has a history of. The radiologist are interprets this and agrees. Patient still feeling improved after breathing treatments. He will be discharged home and counseled to continue his prednisone. I recommend that he talk to his primary care provider before stopping his doxycycline. Since albuterol not helping significantly I will put him on Symbicort. He is to follow-up with his primary care doctor to ensure resolution. He states that he has a referral to a specialist which he believes is a research professor of biostatistics and will be contacted in 7 to 10 days for this follow-up. I counseled him if he has any worsening of his symptoms to return to the ER. Impression: 1. Acute bronchitis with wheezing Lab Data Attestation: I reviewed the patient's lab results. Labs: Laboratory Results - last 24 hr 06/18/22 06/18/22 06/18/22 08:30 08:30 08:30 WBC 8.5 RBC 5.14 Hgb 14.9 Hct 45.4 MCV 88.3 MCH 29.0 MCHC 32.8 RDW Std Deviation 44.7 H RDW Coeff of Bina 13.7 Plt Count 245 MPV 9.9 Immature Gran % (Auto) 0.700 Neut % (Auto) 67.8 Lymph % (Auto) 12.7 L Baxter % (Auto) 11.6 H Eos % (Auto) 6.4 H Baso % (Auto) 0.8 Absolute Neuts (auto) 5.8 Absolute Lymphs (auto) 1.08 Nucleated RBC % 0 Sodium 140 Potassium 3.5 Chloride 106 Carbon Dioxide 27.0 Anion Gap 7 BUN 17 Creatinine 0.95 Estim Creat Clear Calc 88.49 Est GFR (MDRD) Af Amer 103 Est GFR (MDRD) Non-Af 85 BUN/Creatinine Ratio 17.9 Glucose 139 H Calcium 8.9 Troponin I High Sens 7 B-Natriuretic Peptide 25.3 Radiography Diagnostic Testing: Clinical Impression(s) from Imaging Studies Chest X-Ray 06/18/22 08:40 IMPRESSION: Mild left basilar atelectatic changes. No active pulmonary disease. Electronically Signed: Obi Cabrera MD at 9:01 EDT , Discharge Plan Triage Chief Complaint: Shortness of Breath ED Provider: Ferdinand Diez Dx/Rx/DC Orders Instructions: ED Bronchitis with Wheezing (Adult) Prescriptions: New budesonide-formoterol [Symbicort] 160-4.5 mcg/actuation HFA aerosol inhaler 2 puff inhalation BID Qty: 10.2 0RF No Action prednisone 20 mg Tablet 40 mg PO DAILY dicyclomine 20 mg tablet 10 - 20 mg PO TID Label Comments: TAKE 1/2-1 TABLET BY MOUTH 3 TIMES A DAY NEEDED FOR 10 DAYS albuterol sulfate 90 mcg/actuation HFA aerosol inhaler 1 - 2 puff INHALATION Q6H PRN (Reason: Shortness Of Breath) Label Comments: INHALE 2 PUFFS EVERY 6 HOURS NEEDED FOR 30 DAYS doxycycline hyclate 100 mg Tablet 100 mg PO BID Primary Care Provider: Anthony Pang Referrals: Anthony Pang MD [Primary Care Provider] - Disposition Disposition: Home, Self Care
[2022-06-18] MEDS: Ipratropium/Albuterol Sulfate 3 ML AMPUL.NEB INHALATION (07:53)
[2022-06-18] MEDS: Albuterol 2.5 MG/3 ML VIAL.NEB. INHALATION (07:53)
[2022-06-18 07:55] VITALS: PULSE 92; RESP 21
[2022-06-18] MEDS: MethylPREDNISolone 125 MG/2 ML Vial IV (08:34)
[2022-06-18] MEDS: Ondansetron 4 MG/2 ML Vial IV (08:34)
[2022-06-18 08:36] LABS: Absolute Lymphocyte Count 1.08 X10^3/uL (0.83-4.51); Absolute Neutrophil Count 5.8 X10^3/uL (2.0-7.7); Basophil# 0.07 X10^3/uL; Basophil% 0.8 % (0-1); Eosinophil# 0.54 X10^3/uL; Eosinophils% 6.4 % (0-5); Hematocrit 45.4 % (40-54); Hemoglobin 14.9 g/dL (13.0-16.5); Lymphocyte # 1.08 X10^3/ul (0.83-4.51); Lymphocyte % 12.7 % (19-41); Mean Corp Hgb Conc 32.8 g/dL (32-36); Mean Corpuscular Volume 88.3 fL (80-94); Mean Platelet Vol. 9.9 fl (6.2-12.0); Monocyte# 0.99 X10^3/uL; Monocyte% 11.6 % (0-10); NRBC Flagged by Analyzer 0 % (0-5); Neutrophil # 5.76 X10^3/uL (2.7-7.7); Neutrophil % 67.8 % (47-70); Platelet Count 245 K/mm3 (150-450); RBC Distribution Width CV 13.7 % (11.6-14.6); RBC Distribution Width SD 44.7 fl (35.1-43.9); Red Blood Count 5.14 M/mm3 (4.6-6.2); White Blood Count 8.5 K/mm3 (4.4-11.0)
--- NOTE | 2022-06-18 08:40 | RAD_ITS ---
STUDY: X-RAY CHEST REASON FOR EXAM: Male, 61 years old. Cough TECHNIQUE: Frontal and lateral views of the chest. COMPARISON: None. FINDINGS: Mild linear subsegmental atelectasis in left lung base. Scattered nodular densities likely due to granulomas. No focal infiltrate is seen. There is no demonstrated pleural abnormality. Normal size heart. Normal mediastinum and viola. Normal visualized pulmonary arteries. Normal visualized aortic arch and descending thoracic aorta. Degenerative changes in the thoracic spine. Normal visualized ribs, clavicles, and shoulders. There is no demonstrated abnormality of the visualized soft tissue structures of the upper abdomen. RAD/Chest PA and Lateral IMPRESSION: Mild left basilar atelectatic changes. No active pulmonary disease. Electronically Signed: Obi Cabrera MD at 9:01 EDT ,
[2022-06-18 08:52] LABS: BNP,B-Type NATRIURETIC PEPTIDE 25.3 pg/mL (0-100)
[2022-06-18 08:54] LABS: Anion Gap 7 (5-15); BUN 17 mg/dL (7-18); BUN/Creat Ratio 17.9 RATIO (10-20); Calcium,Total 8.9 mg/dL (8.5-10.1); Chloride 106 mmol/L (98-107); Creatinine, Serum 0.95 mg/dL (0.70-1.30); EST Glomerular Filtration Rate 85 mL/min (>60); Est Glom Filt Rate - Afr Amer 103 mL/min (>60); Estimated Creatinine Clearance 88.49 ml/min; Glucose 139 mg/dL (74-106); Potassium 3.5 mmol/L (3.5-5.1); Sodium Level 140 mmol/L (136-145); Troponin-I HS 7 pg/mL (3.0-78.0)
[2022-06-18 09:11] VITALS: BP 136/111; PULSE 86; RESP 20; O2SAT 93
[2022-06-18 09:28] VITALS: BP 153/82; PULSE 88; RESP 20; O2SAT 94
== END 2022-06-18 09:32 | disposition home or self-care (01) ==
PROVIDERS: Emergency Provider Student in an Organized Health Care Education/Training Program; Visit Provider Student in an Organized Health Care Education/Training Program
DX: J20.9 Acute bronchitis, unspecified (principal); R06.2 Wheezing; R11.2 Nausea with vomiting, unspecified; R19.7 Diarrhea, unspecified; R73.9 Hyperglycemia, unspecified; Z79.52 Long term (current) use of systemic steroids; Z79.899 Other long term (current) drug therapy; Z96.653 Presence of artificial knee joint, bilateral
CPT/HCPCS: 71046; 80048; 83880; 84484; 85025; 93005; 94640; 96374; 96375; 99283; A4216; J2405

== ENCOUNTER → 2024-11-07 | Outpatient (CLI) | payer OTHER, SELFPAY ==
--- NOTE | 2024-11-07 15:46 | CT_ITS ---
PROCEDURE: CHEST WITHOUT CONTRAST REASON FOR EXAM: MEDICATION RESISTANT ASTHMA TECHNIQUE: Chest CT without contrast. COMPARISON: Comparison is made with prior chest radiograph dated June 18, 2022. FINDINGS: Hardware: None. Lymph nodes: Benign granulomatous calcifications. Heart and Vasculature: Normal heart size. No pericardial effusion. Atherosclerotic calcifications of the thoracic aorta. Thoracic aorta and pulmonary arteries have normal contours; noncontrast technique limits evaluation. Coronary Artery Calcifications: Present Lungs and Airways: Multiple scattered bilateral calcified granulomas. Hyperinflation. Mild degree of emphysematous changes. Increased markings at the lung bases slightly more prominent at the right lung base suggestive of bibasilar scarring. Pleura: No pleural effusion. No pneumothorax. Upper Abdomen: Visualized portions of the upper abdominal viscera are unremarkable.. Small hiatal hernia. Bones: Degenerative changes of the thoracic spine. CT/Chest without Contrast IMPRESSION: Hyperinflation and mild degree of emphysematous changes. Calcified hilar and mediastinal lymph nodes as well as multiple small bilateral calcified granulomas. Increased markings at the lung bases slightly more prominent at the right lung base suggestive of scarring. One or more dose reduction techniques were used (e.g., Automated exposure contr ol, adjustment of the mA and/or kV according to patient size, use of iterative reconstruction technique). Reading Location: [facility]-
== END | disposition home or self-care (01) ==
LOC: CT 15:42
PROVIDERS: PCP Family Medicine; Referring Provider Internal Medicine Pulmonary Disease; Visit Provider Internal Medicine Pulmonary Disease
DX: J45.40 Moderate persistent asthma, uncomplicated (principal)
CPT/HCPCS: 71250

== ENCOUNTER → 2024-12-26 | Outpatient (CLI) | payer MEDICARE, SELFPAY ==
[2024-12-26 12:21] LABS: Absolute Lymphocyte Count 1.35 X10^3/uL (0.83-4.51); Absolute Neutrophil Count 4.8 X10^3/uL (2.0-7.7); Basophil# 0.05 X10^3/uL; Basophil% 0.7 % (0-1); Eosinophil# 0.25 X10^3/uL; Eosinophils% 3.4 % (0-5); Hemoglobin 15.7 g/dL (13.0-16.5); Lymphocyte # 1.35 X10^3/ul (0.83-4.51); Lymphocyte % 18.4 % (19-41); Mean Corp Hgb Conc 34.1 g/dL (32-36); Mean Corpuscular Hgb 30.8 pg (27.0-32.0); Mean Corpuscular Volume 90.2 fL (80-94); Mean Platelet Vol. 10.4 fl (6.2-12.0); Monocyte# 0.87 X10^3/uL; Monocyte% 11.9 % (0-10); NRBC Flagged by Analyzer 0 % (0-5); Neutrophil # 4.75 X10^3/uL (2.7-7.7); Neutrophil % 64.9 % (47-70); Platelet Count 218 K/mm3 (150-450); RBC Distribution Width CV 13.3 % (11.6-14.6); RBC Distribution Width SD 43.8 fl (35.1-43.9); White Blood Count 7.3 K/mm3 (4.4-11.0)
[2024-12-26 12:28] LABS: Erythrocyte Sedimentation Rate 6 mm/hr (0-20)
[2024-12-26 13:37] LABS: CRP 4.04 mg/L (0.0-3.0); Rubella IgG Nonreactive (Nonreactive)
[2024-12-27 11:08] LABS: ANTINUCLEAR ANTIBODIES DIRECT Positive (Negative); Anti-dsDNA Ab 151 IU/mL (0-9); RNP Ab 0.2 AI (0.0-0.9); SJOGREN'S Anti-SS-A test < 0.2 AI (0.0-0.9); SJOGREN'S Anti-SS-B test < 0.2 AI (0.0-0.9)
[2024-12-30 08:07] LABS: Angiotensin Convert Enzyme 31 U/L (14-82); CCP IgG Antibodies 14 units (0-19); Cytoplasmic Ab (C-ANCA) <1:20 titer (Neg:<1:20); Perinuclear Ab (P-ANCA) <1:20 titer (Neg:<1:20)
== END | disposition home or self-care (01) ==
LOC: MTLAB 10:15
PROVIDERS: PCP Family Medicine; Referring Provider Internal Medicine Pulmonary Disease; Visit Provider Internal Medicine Pulmonary Disease
DX: J43.9 Emphysema, unspecified (principal); R05.9 Cough, unspecified
CPT/HCPCS: 36415; 82164; 85025; 85652; 86037; 86038; 86140; 86200; 86225; 86235; 86762